=== PATIENT | female | born 1970 | race Caucasian/White ===

== ENCOUNTER 2018-07-31 23:09 | Emergency (ER) | payer BC ==
[2018-07-31 23:35] VITALS: TEMP 98; O2SAT 100
--- NOTE | 2018-07-31 23:55 | ED PDOC ---
HPI: Headache Time Seen by Provider: 07/31/18 23:54 Chief Complaint (Nursing): Headache Chief Complaint (Provider): headache History Per: Patient (47 y/o female here with headache left sided noted x 3 days. Was seen by pmd for uri/cough/sore throat and started on levaquin for symptoms. STates she feels worse since starting medication with left frontal headache.) Past Medical History Reviewed: Historical Data, Nursing Documentation, Vital Signs Vital Signs: Last Vital Signs Temp 98.0 F 07/31/18 23:30 Pulse 64 07/31/18 23:30 Resp 16 07/31/18 23:30 BP 162/95 H 07/31/18 23:30 Pulse Ox 100 07/31/18 23:30 - Medical History PMH: Asthma, Hypercholesterolemia - Family History Family History: States: Unknown Family Hx - Home Medications Home Medications: Ambulatory Orders Medication Instructions Recorded Ibuprofen [Motrin] 600 mg PO Q6 PRN #30 tab 09/05/15 Amoxicillin/Potassium Clav 1 tab PO BID #20 tablet 01/30/16 [Augmentin 875-125 Tablet] Ibuprofen [Motrin] 600 mg PO Q8 PRN #21 tab 08/01/18 Pseudoephedrine [Sudafed Tab] 60 mg PO Q6 PRN #15 tab 08/01/18 - Allergies Allergies/Adverse Reactions: Allergies Allergy/AdvReac Type Severity Reaction Status Date / Time Penicillins Allergy RASH Verified 07/31/18 23:30 Review of Systems ROS Statement: Except As Marked, All Systems Reviewed And Found Negative ENT: Positive for: Nose Congestion Respiratory: Positive for: Cough Neurological: Positive for: Headache Physical Exam - Reviewed Nursing Documentation Reviewed: Yes Vital Signs Reviewed: Yes - Physical Exam Appears: Positive for: Well, Non-toxic, No Acute Distress Head Exam: Positive for: ATRAUMATIC, NORMAL INSPECTION, NORMOCEPHALIC Skin: Positive for: Normal Color, Warm, DRY Eye Exam: Positive for: EOMI, Normal appearance, PERRL ENT: Positive for: Normal ENT Inspection Neck: Positive for: Normal, Painless ROM Cardiovascular/Chest: Positive for: Regular Rate, Rhythm Respiratory: Positive for: CNT, Normal Breath Sounds Gastrointestinal/Abdominal: Positive for: Normal Exam, Soft Back: Positive for: Normal Inspection Extremity: Positive for: Normal ROM Neurologic/Psych: Positive for: Alert, Oriented - Laboratory Results Result Diagrams: 07/31/18 23:55 07/31/18 23:55 - ECG O2 Sat by Pulse Oximetry: 100 - Progress ED Course And Treament: REGLAN 10 MG IV X 1 DOSE NS [address] RESULTS D/W PATIENT. REPEAT BP 125 /88 Medical Decision Making Medical Decision Makin:39 CT Head FINDINGS: BRAIN No acute intraparenchymal hemorrhage. No mass lesion. No CT evidence for acute territorial infarct. No midline shift or extra-axial collections. VENTRICLES: No hydrocephalus. ORBITS: The orbits are unremarkable. SINUSES AND MASTOIDS: Bilateral ethmoid and right maxillary sinusitis. The mastoid air cells are clear. BONES: No fracture. SOFT TISSUES: Unremarkable. IMPRESSION: Sinusitis. No acute intracranial abnormality. Disposition - Clinical Impression Clinical Impression: Sinusitis - Patient ED Disposition Is Patient to be Admitted: No - Disposition Referrals: Lee Gerber MD [Staff Provider] - Disposition: Routine/Home Disposition Time: 01:59 Condition: FAIR Additional Instructions: COMPLETE YOUR ANTIBIOTICS. Prescriptions: Ibuprofen [Motrin] 600 mg PO Q8 PRN #21 tab PRN Reason: Pain, Moderate (4-7) Pseudoephedrine [Sudafed Tab] 60 mg PO Q6 PRN #15 tab PRN Reason: Nasal Congestion Instructions: Sinusitis, Adult (DC) Forms: [facility] ED School/Work Excuse Print Language: TUVALUAN
[2018-08-01 00:14] LABS: BASO # 0.1 K/uL (0.0-0.2); BASO % 0.8 % (0.0-2.0); EOS # 0.5 K/uL (0.0-0.7); EOS % 5.8 % (0.0-4.0); HEMOGLOBIN 12.4 g/dL (12.0-16.0); LYMPH % 35.5 % (20.0-40.0); MEAN CELL VOLUME 83.3 fl (81.0-99.0); MEAN CORPUSCULAR HEMOGLOBIN 27.2 pg (27.0-31.0); MEAN CORPUSCULAR HGB CONC 32.7 g/dL (33.0-37.0); MEAN PLATELET VOLUME 8.6 fl (7.2-11.7); MONO # 0.9 K/uL (0.0-0.8); MONO % 10.6 % (0.0-10.0); NEUT % 47.3 % (50.0-75.0); RBC 4.56 Mil/uL (3.80-5.20); RED CELL DISTRIBUTION WIDTH 14.5 % (11.5-14.5); WHITE BLOOD COUNT 8.4 K/uL (4.8-10.8)
[2018-08-01 00:20] LABS: BLOOD UREA NITROGEN 21 mg/dl (7-17); CALCIUM 9.2 mg/dL (8.4-10.2); GFR NON-AFRICAN AMERICAN > 60
[2018-08-01] MEDS: Sodium Chloride 0.9% 1,000 ML IV STA (00:22)
[2018-08-01 00:54] LABS: SQUAMOUS EPITHIAL 8 /hpf (0-5); URINE BILIRUBIN NEGATIVE (NEGATIVE); URINE BLOOD NEGATIVE (NEGATIVE); URINE CLARITY SLIGHTY-CLOUDY (Clear); URINE COLOR YELLOW (YELLOW); URINE GLUCOSE (UA) NEG (NEGATIVE); URINE HYALINE CAST 0-2 /hpf (0-2); URINE LEUKOCYTE ESTERASE NEG Leu/uL (Negative); URINE PROTEIN NEGATIVE (NEGATIVE); URINE UROBILINOGEN 0.2-1.0 mg/dL (0.2-1.0)
[2018-08-01 02:01] VITALS: BP 125/88; PULSE 65; RESP 18
--- NOTE | 2018-08-01 09:02 | CT ---
Date of service: 08/01/2018 PROCEDURE: CT HEAD WITHOUT CONTRAST. HISTORY: headache COMPARISON: None available. TECHNIQUE: Axial computed tomography images were obtained through the head/brain without intravenous contrast. Radiation dose: Total exam DLP = 841.1 mGy-cm. This CT exam was performed using one or more of the following dose reduction techniques: Automated exposure control, adjustment of the mA and/or kV according to patient size, and/or use of iterative reconstruction technique. FINDINGS: HEMORRHAGE: No intracranial hemorrhage. BRAIN: No mass effect or edema. No atrophy or chronic microvascular ischemic changes. VENTRICLES: Unremarkable. No hydrocephalus. CALVARIUM: Unremarkable. PARANASAL SINUSES: Chronic ethmoid and right maxillary sinusitis MASTOID AIR CELLS: Unremarkable as visualized. No inflammatory changes. OTHER FINDINGS: None. IMPRESSION: No intracranial mass, hemorrhage or evidence of acute infarct. Chronic ethmoid and right maxillary sinusitis. The preliminary findings for this examination were reported by [facility] Radiology at 1:39 a.m. on 08/01/2018. There is concurrence of this report with the preliminary findings.
== END 2018-08-01 02:29 | disposition home or self-care (01) ==
LOC: H.ER 23:09
DX: J32.0 Chronic maxillary sinusitis (principal); E78.00 Pure hypercholesterolemia, unspecified; Z88.0 Allergy status to penicillin
CPT/HCPCS: 70450; 80048; 81003; 81025; 85025; 96361; 96374; 96375; 99284; J1885; J2765; J7030

== ENCOUNTER 2018-08-20 09:40 | Emergency (ER) | payer BC ==
[2018-08-20 09:44] VITALS: BMI 28.2
[2018-08-20 09:47] VITALS: RESP 18
--- NOTE | 2018-08-20 10:33 | ED PDOC ---
History of Present Illness History of Present Illness: Pt presents to the ED with complaint of two weeks of flu like symptoms including fever, cough, congestion body aches and occasional nausea. Pt denies other systemic or chronic medical conditions as well as . Pt does indicate that she was treated two weeks ago for sinusitis but her symptoms only worsened since her treatment. Pt is afebrile on presentation HPI: Influenza Time Seen by Provider: 08/20/18 10:23 Chief Complaint: Cough, Cold, Congestion Chief Complaint (Provider): Flu like symptoms History Per: Patient Exam Limitations: no limitations Have you had recent travel within the past 21 days to any of: No Onset/Duration Of Symptoms: Days (fourteen) Symptoms include: fever, headache, bodyaches, cough, nasal congestion. denies: sore throat, vomiting, diarrhea, difficulty breathing, rash Sick Contacts (Context): None Hx Influenza Vaccination: No Past Medical History Reviewed: Historical Data, Nursing Documentation, Vital Signs Vital Signs: Last Vital Signs Temp 98.9 F 08/20/18 09:44 Pulse 89 08/20/18 09:44 Resp 18 08/20/18 09:44 BP 126/82 08/20/18 09:44 Pulse Ox 100 08/20/18 09:44 - Medical History PMH: Asthma, Hypercholesterolemia - Family History Family History: States: Unknown Family Hx - Home Medications Home Medications: Ambulatory Orders Medication Instructions Recorded Ibuprofen [Motrin] 600 mg PO Q6 PRN #30 tab 09/05/15 Amoxicillin/Potassium Clav 1 tab PO BID #20 tablet 01/30/16 [Augmentin 875-125 Tablet] Ibuprofen [Motrin] 600 mg PO Q8 PRN #21 tab 08/01/18 Pseudoephedrine [Sudafed Tab] 60 mg PO Q6 PRN #15 tab 08/01/18 Oseltamivir Phosphate [Tamiflu] 75 mg PO BID #10 capsule 08/20/18 - Allergies Allergies/Adverse Reactions: Allergies Allergy/AdvReac Type Severity Reaction Status Date / Time Penicillins Allergy RASH Verified 07/31/18 23:30 Review of Systems ROS Statement: Except As Marked, All Systems Reviewed And Found Negative Constitutional: Positive for: Fever, Chills, Weakness ENT: Positive for: Ear Pain, Nose Discharge, Nose Congestion Respiratory: Positive for: Cough Gastrointestinal: Positive for: Nausea Genitourinary Female: Negative for: Dysuria Musculoskeletal: Positive for: Other (joint and body pain) Neurological: Positive for: Headache Physical Exam - Reviewed Nursing Documentation Reviewed: Yes Vital Signs Reviewed: Yes - Physical Exam Appears: Positive for: Well, Uncomfortable Head Exam: Positive for: ATRAUMATIC, NORMAL INSPECTION Skin: Positive for: Normal Color, Warm, Dry Eye Exam: Positive for: Normal appearance, EOMI, PERRL. Negative for: Nystagmus, Periorbital swelling, Periorbital tenderness ENT: Positive for: Pharynx Is (clear and nonerythematous; no tonsillar edema or exudate), Nasal Congestion (there is significant drainage in the oropharanx). Negative for: Tonsillar Exudate, Tonsillar Swelling Neck: Positive for: Normal, Painless ROM, Supple. Negative for: Decreased ROM Cardiovascular/Chest: Positive for: Regular Rate, Rhythm Respiratory: Positive for: Normal Breath Sounds. Negative for: Decreased Breath Sounds, Accessory Muscle Use, Crackles, Rales, Rhonchi, Stridor, Wheezing, Respiratory Distress Pulses-Carotid (L): 2+ Pulses-Carotid (R): 2+ Pulses-Radial (L): 2+ Pulses-Radial (R): 2+ Medical Decision Making Medical Decision Making: Flu like symptoms TX with IV fluids apap and toradol Inflenza positive Further follow up treated with 75mg of tamiflu on follow up screen, pt is feeling better. THere is no further treatment necessary in ED, pt is stable for discharge and follow up iwth her PMD Rx tamiflu dayquil nyquil fluids rest and chicken soup - Laboratory Results Result Diagrams: 08/20/18 11:02 08/20/18 11:02 - ECG O2 Sat by Pulse Oximetry: 100 Disposition - Clinical Impression Clinical Impression: Influenza A - Patient ED Disposition Is Patient to be Admitted: No Comment: Follow up with PMD in 24-48 hours. Tamiflu. Dayquil. Nyquil. F luids. Rest. Chicken soup Doctor Will See Patient In The: Office Counseled Patient/Family Regarding: Studies Performed, Diagnosis, Need For Followup - Disposition Disposition: Routine/Home Disposition Time: 11:41 Condition: STABLE Prescriptions: Oseltamivir Phosphate [Tamiflu] 75 mg PO BID #10 capsule Instructions: Flu, Adult (DC), Flu Forms: [employer] (Arabic)
[2018-08-20] MEDS ORDERED: Sodium Chloride 0.9% 1,000 ML IV SCH (10:45)
[2018-08-20 11:17] LABS: BASO % 0.6 % (0.0-2.0); EOS % 0.2 % (0.0-4.0); HEMOGLOBIN 12.2 g/dL (12.0-16.0); LYMPH # 1.2 K/uL (1.0-4.3); MEAN CELL VOLUME 82.9 fl (81.0-99.0); MEAN CORPUSCULAR HGB CONC 32.5 g/dL (33.0-37.0); MONO # 0.9 K/uL (0.0-0.8); MONO % 14.1 % (0.0-10.0); NEUT # 4.1 K/uL (1.8-7.0); NEUT % 66.1 % (50.0-75.0); NRBC % 0.1 % (0.0-0.0); RBC 4.54 Mil/uL (3.80-5.20); WHITE BLOOD COUNT 6.2 K/uL (4.8-10.8)
[2018-08-20 11:18] LABS: SQUAMOUS EPITHIAL 13 /hpf (0-5); URINE BACTERIA OCC (<OCC); URINE BILIRUBIN NEGATIVE (NEGATIVE); URINE BLOOD NEGATIVE (NEGATIVE); URINE CLARITY CLOUDY (Clear); URINE COLOR YELLOW (YELLOW); URINE GLUCOSE (UA) NEG (NEGATIVE); URINE LEUKOCYTE ESTERASE LARGE Leu/uL (Negative); URINE PROTEIN NEGATIVE (NEGATIVE); URINE UROBILINOGEN 0.2-1.0 mg/dL (0.2-1.0)
[2018-08-20 11:22] LABS: ALB/GLOB RATIO 1.2 (1.0-2.1); ALT/SGPT 30 U/L (9-52); AST/SGOT 24 U/L (14-36); BLOOD UREA NITROGEN 11 mg/dl (7-17); CALCIUM 8.5 mg/dL (8.4-10.2); GFR NON-AFRICAN AMERICAN > 60
[2018-08-20 13:48] VITALS: BP 119/70; PULSE 76; TEMP 98.8; O2SAT 99
--- NOTE | 2018-08-20 13:53 | RAD ---
Date of service: 08/20/2018 HISTORY: r/o pna COMPARISON: Chest radiographs 01/30/2016. TECHNIQUE: Chest PA and lateral FINDINGS: LUNGS: No active pulmonary disease. PLEURA: No significant pleural effusion identified. No pneumothorax apparent. CARDIOVASCULAR: No aortic atherosclerotic calcification present. Normal cardiac size. No pulmonary vascular congestion. OSSEOUS STRUCTURES: No significant abnormalities. VISUALIZED UPPER ABDOMEN: Normal. OTHER FINDINGS: Bilateral breast implantation again evident. IMPRESSION: No interval acute cardiopulmonary disease appreciated.
== END 2018-08-20 13:48 | disposition home or self-care (01) ==
LOC: H.ER 09:40
DX: J09.X2 Influenza due to identified novel influenza A virus with other respiratory manifestations (principal); E78.00 Pure hypercholesterolemia, unspecified; Z88.0 Allergy status to penicillin
CPT/HCPCS: 71046; 80053; 81003; 81025; 85025; 87804; 96374; 99282; J1885; J7030